=== PATIENT | male | born 1965 | race Caucasian/White ===

== ENCOUNTER 2022-08-12 16:58 | Emergency (ER) | payer MEDICAID ==
[2022-08-12] MEDS ORDERED: Ketorolac 30 MG/ML SDV IM ONE (17:17)
[2022-08-12] MEDS ORDERED: methylPREDNISolone Sodium Succinate 125 MG/2 ML SDV IM STA (17:18)
[2022-08-12] MEDS ORDERED: Take Home: Cyclobenzaprine 10 MG Tab, 4 Tab Pack PO ONE (17:20)
[2022-08-12 18:36] VITALS: BP 151/72; PULSE 83
== END 2022-08-12 17:45 | disposition home or self-care (01) ==
LOC: CC.ED 16:58
DX: M54.42 Lumbago with sciatica, left side (principal); I10 Essential (primary) hypertension; K21.9 Gastro-esophageal reflux disease without esophagitis; E78.5 Hyperlipidemia, unspecified; E66.9 Obesity, unspecified; Z68.34 Body mass index [BMI] 34.0-34.9, adult; Z88.8 Allergy status to other drugs, medicaments and biological substances; Z79.82 Long term (current) use of aspirin; Z79.899 Other long term (current) drug therapy
CPT/HCPCS: 96372; 99283; 99284; A9270-GY; J1885; J2930